=== PATIENT | male | born 1955 | race Caucasian/White ===

== ENCOUNTER 2016-10-16 23:33 | Emergency (ER) | payer BC ==
[~2016-10-16] VITALS: Ht 182.9 cm; Wt 113.4 kg
[~2016-10-16 23:33] MED LIST: ATOR20TA58 PO; CLOP75TA PO; LISI-338 PO; NAPR220C4 PO
[2016-10-17 00:51] VITALS: BP 130/72
[2016-10-17] MEDS ORDERED: BISACODYL 10 MG SUPP.RECT PR PRN (02:00)
[2016-10-17] MEDS ORDERED: BISACODYL 5 MG TABLET.DR. PO PRN (02:00)
[2016-10-17] MEDS ORDERED: MAGNESIUM CITRATE 296 ML SOLUTION. PO ONE (02:15)
[2016-10-17] MEDS ORDERED: MAGN296S PO (02:41)
[2016-10-17] MEDS ORDERED: BISA-42 PO (02:41)
--- NOTE | 2016-10-17 02:41 | PHYS DOC ---
Past Medical History Past Medical History: No Pertinent History Past Surgical History: No Surgical History Alcohol Use: Rarely Drug Use: None Adult General Chief Complaint Chief Complaint: ABDOMINAL PAIN HPI HPI Patient is a 61 year old gentleman with history significant for stroke in the past presents here today secondary to constipation. Patient reports that approximately one week ago he was having severe dental pain and was given a prescription for Lortab. Patient reports has been taking Lortab without any stool softeners. Patient reports that he hasn't had a good bowel movement and close to 4-5 days. Patient reports he has actually no abdominal discomfort. Patient denies any nausea vomiting diarrhea. Patient denies any chest pain or shortness of breath. Patient reports he is tolerating by mouth as well. Patient reports he feels rectal pressure and feels constipated. Patient's workup in the ER is unremarkable. Patient's abdominal exam is soft nontender no rebound or guarding. Patient's x-ray was consistent with having lots of stool in the rectum. Plan the ER was to give the patient Dulcolax suppositories, Dulcolax pills, mag citrate and to reevaluate him. Patient reports that he would prefer to take his medications at home as he would feel more comfortable there. Review of Systems Review of Systems Constitutional: Denies fever or chills [] Eyes: Denies change in visual acuity, redness, or eye pain [] HENT: Denies nasal congestion or sore throat [] Respiratory: Denies cough or shortness of breath [] Cardiovascular: No additional information not addressed in HPI [] GI: Denies abdominal pain, nausea, vomiting, bloody stools or diarrhea [] : Denies dysuria or hematuria [] Musculoskeletal: Denies back pain or joint pain [] Integument: Denies rash or skin lesions [] Neurologic: Denies headache, focal weakness or sensory changes [] Endocrine: Denies polyuria or polydipsia [] Current Medications Current Medications Current Medications Medications (Trade) Dose Ordered Sig/Sage Start Time Stop Time Status Last Admin Dose Admin Bisacodyl (Dulcolax Supp) 20 mg PRN DAILY PRN 10/17/16 02:00 10/17/16 02:25 20 MG Bisacodyl (Dulcolax Tab) 20 mg PRN DAILY PRN 10/17/16 02:00 10/17/16 02:25 20 MG Magnesium Citrate (Citroma) 296 ml 1X ONCE 10/17/16 02:15 10/17/16 02:16 DC 10/17/16 02:25 296 ML Allergies Allergies Allergies Coded Allergies Type Severity Reaction Last Updated Verified No Known Drug Allergies 09/23/15 No Physical Exam Physical Exam Constitutional: Well developed, well nourished, no acute distress, non-toxic appearance. [] HENT: Normocephalic, atraumatic, bilateral external ears normal, oropharynx moist, no oral exudates, nose normal. [] Eyes: PERRLA, EOMI, conjunctiva normal, no discharge. [] Neck: Normal range of motion, no tenderness, supple, no stridor. [] Cardiovascular:Heart rate regular rhythm, no murmur [] Lungs & Thorax: Bilateral breath sounds clear to auscultation [] Abdomen: Bowel sounds normal, soft, no tenderness, no masses, no pulsatile masses. [] Skin: Warm, dry, no erythema, no rash. [] Back: No tenderness, no CVA tenderness. [] Extremities: No tenderness, no cyanosis, no clubbing, ROM intact, no edema. [] Neurologic: Alert and oriented X 3, normal motor function, normal sensory function, no focal deficits noted. [] Psychologic: Affect normal, judgement normal, mood normal. [] Current Patient Data Vital Signs Vital Signs Date Time Temp Pulse Resp B/P Pulse Ox O2 Delivery O2 Flow Rate FiO2 10/17/16 00:40 97.9 78 20 130/72 93 Room Air 97.9 EKG EKG [] Radiology/Procedures Radiology/Procedures [] Course & Med Decision Making Course & Med Decision Making Pertinent Labs and Imaging studies reviewed. (See chart for details) [] This is a 61-year-old woman who presents to the ER today complaining of constipation. Patient is clinically and hemodynamically stable. Patient will be discharged home with Dulcolax, mag citrate, and will follow-up with his doctor if no resolution with these medications. I will give the patient prescription for the same in order to continue utilizing for the next 24 hours. Patient was instructed to always use Colace whenever he uses any narcotics as he clearly is sensitive from a GI standpoint to this. Dragon Disclaimer Dragon Disclaimer This electronic medical record was generated, in whole or in part, using a voice recognition dictation system. Departure Departure Impression: Primary Impression: Constipation Disposition: HOME, SELF-CARE Condition: STABLE Referrals: RAISA BECK MD (PCP) Patient Instructions: Constipation, Adult Scripts Bisacodyl (Dulcolax)5 Mg Tablet.dr10 Mg PO Q6HRS PRN CONSTIPATION #20 TAB Ref 0 Prov:FATUMA ARTHUR MD 10/17/16 Magnesium Citrate 296 Ml [id number] Ml PO ONCE #296 ML Prov:FATUMA ARTHUR MD 10/17/16 FATUMA ARTHUR MD Oct 17, 2016 02:41
--- NOTE | 2016-10-17 07:21 | RAD ---
Acute abdomen series with chest, 3 views, 10/17/2016: History: Abdominal pain and constipation There is a fecal impaction in the rectum. There is a moderate amount stool in the remainder of the colon. The small bowel loops are unremarkable. There is mild gaseous distention of the stomach. No free air seen in the abdomen. There is no evidence of organomegaly. Lower pelvic calcifications probably a phlebolith. Scattered degenerative changes are evident in the spine. The heart size and pulmonary vascularity are normal. No pulmonary infiltrates are seen. There is no evidence of pleural fluid. IMPRESSION: Moderate fecal impaction
== END 2016-10-17 02:45 | disposition home or self-care (01) ==
LOC: ER 23:33
DX: K59.00 Constipation, unspecified (principal); Z86.73 Personal history of transient ischemic attack (TIA), and cerebral infarction without residual deficits
CPT/HCPCS: 74022; 99284